=== PATIENT | female | born 1965 | race Caucasian/White ===

== ENCOUNTER 2022-12-22 14:38 | Emergency (ER) | payer OTHER ==
[~2022-12-22] VITALS: Ht 165.1 cm; Wt 149.2 kg
[2022-12-22] MEDS ORDERED: NORVASC5 MG (15:14)
[2022-12-22] MEDS ORDERED: COZAAR50 MG (15:14)
== END 2022-12-22 17:36 | disposition home or self-care (01) ==
LOC: ER 14:38
DX: L02.221 Furuncle of abdominal wall (principal); I10 Essential (primary) hypertension

== ENCOUNTER 2025-07-24 12:06 | Emergency (ER) | payer OTHER ==
[~2025-07-24] VITALS: Ht 165.1 cm; Wt 133.4 kg
[~2025-07-24 12:06] MED LIST: COZAAR50 MG; NORVASC5 MG
[2025-07-24 15:58] LABS: BASO % 0.9 % (0.1-1.2); EOS # 0.14 (0.04-0.54); EOS % 1.1 % (0.7-7.0); LYMPH # 3.82 (1.18-3.74); LYMPH % 29.0 % (19.3-53.1); MEAN PLATELET VOLUME 12.00 fl (9.4-12.4); MONO # 0.66 (0.24-0.82); MONO % 5.0 % (4.7-12.5); NEUT # 8.41 (1.56-6.13); NEUT % 63.7 % (34.0-71.1); RED CELL DISTRIBUTION WIDTH 13.5 % (11.6-14.4)
[2025-07-24 16:18] LABS: ALT/SGPT 39.0 U/L (12-78); AST/SGOT 31.0 U/L (15-37); BILIRUBIN TOTAL 0.45 mg/dL (0.3-1.2); BUN CREA RATIO 14.0 (7.0-25.0); CREATININE SERUM 0.81 mg/dL (0.55-1.02); GFR 72.62; GLOBULINA 3.9 G/DL (2.4-3.5); GLUCOSE FASTING 126.0 mg/dL (65-100); OSMOLALITY SERUM 282.0 MOSM/KG (275-295)
[2025-07-24 16:22] LABS: URINE APPEARANCE Clear; URINE BILIRRUBIN Negative (NEGATIVE); URINE BLOOD Trace; URINE COLOR Yellow; URINE GLUCOSE Negative (NEGATIVE); URINE KETONE 15 (NEGATIVE); URINE LEUKOCYTE Trace; URINE NITRATE Negative; URINE PROTEIN Negative (NEGATIVE); URINE UROBILINOGEN 0.2 E.U./dl
[2025-07-24 16:26] LABS: URINE BACTERIA 430.7 uL (0.0-1933); URINE EPITHELIAL CELLS 21.6 uL (0.0-38.8); URINE RBC 5.7 uL (0.0-20.8); URINE WBC 109.0 uL (0.0-23.2)
[2025-07-24 16:53] LABS: URINE CAST 0.00 uL (0.0-1.40); URINE YEAST FEW /hpf
[2025-07-24] MEDS ORDERED: DUI500 PO (17:27)
== END 2025-07-24 17:40 | disposition home or self-care (01) ==
LOC: ER 12:31
PROVIDERS: General Practice
DX: N39.0 Urinary tract infection, site not specified (principal); R42 Dizziness and giddiness; H53.8 Other visual disturbances; E11.9 Type 2 diabetes mellitus without complications; Z79.84 Long term (current) use of oral hypoglycemic drugs; I10 Essential (primary) hypertension

== ENCOUNTER 2025-08-21 06:00 | Day surgery (SDC) | payer OTHER ==
[2025-08-17 07:20] LABS: BASO % 0.9 % (0.1-1.2); EOS # 0.12 (0.04-0.54); EOS % 1.3 % (0.7-7.0); LYMPH # 3.00 (1.18-3.74); LYMPH % 32.3 % (19.3-53.1); MEAN PLATELET VOLUME 12.20 fl (9.4-12.4); MONO # 0.67 (0.24-0.82); MONO % 7.2 % (4.7-12.5); NEUT # 5.39 (1.56-6.13); NEUT % 58.1 % (34.0-71.1); RED CELL DISTRIBUTION WIDTH 13.8 % (11.6-14.4)
[2025-08-17 07:43] LABS: INR 1.07
[2025-08-17 08:19] LABS: ALT/SGPT 37.0 U/L (12-78); AST/SGOT 21.0 U/L (15-37); BILIRUBIN TOTAL 0.55 mg/dL (0.3-1.2); BUN CREA RATIO 25.0 (7.0-25.0); CREATININE SERUM 0.69 mg/dL (0.55-1.02); GFR 87.38; GLOBULINA 2.9 G/DL (2.4-3.5); GLUCOSE FASTING 100.0 mg/dL (65-100); OSMOLALITY SERUM 290.0 MOSM/KG (275-295)
[2025-08-17 10:17] LABS: URINE APPEARANCE Clear; URINE BILIRRUBIN Negative (NEGATIVE); URINE BLOOD Trace; URINE COLOR Dark Yellow; URINE GLUCOSE Negative (NEGATIVE); URINE KETONE Trace (NEGATIVE); URINE LEUKOCYTE Negative; URINE NITRATE Negative; URINE PROTEIN Trace (NEGATIVE); URINE UROBILINOGEN 0.2 E.U./dl
[2025-08-17 10:22] LABS: URINE BACTERIA 26.3 uL (0.0-1933); URINE EPITHELIAL CELLS 8.4 uL (0.0-38.8); URINE RBC 20.2 uL (0.0-20.8); URINE WBC 5.9 uL (0.0-23.2)
[2025-08-17 10:27] LABS: URINE CAST 0.73 uL (0.0-1.40)
[~2025-08-21 06:00] MED LIST changes: +DUI500 PO
[2025-08-21] MEDS ORDERED: POVIDONE-IODINE 118 ML BOTT TOP ONE (06:42)
[2025-08-21] MEDS ORDERED: ONDANSETRON HCL 2 MG/ML VIAL IV ONE (08:00)
[2025-08-21] MEDS ORDERED: KETOROLAC TROMETHAMINE 60 MG VIAL IM ONE ×2 (08:00→11:44)
== END 2025-08-21 14:20 | disposition home or self-care (01) ==
LOC: CIR.AMB 06:00
PROVIDERS: ATTEND Obstetrics & Gynecology
DX: N84.0 Polyp of corpus uteri (principal); N95.0 Postmenopausal bleeding

== ENCOUNTER 2025-08-26 23:05 | Emergency (ER) | payer OTHER ==
[~2025-08-26] VITALS: Ht 165.1 cm; Wt 127.0 kg
[2025-08-26] MEDS ORDERED: FAMOTIDINE/PF 20 MG in 0.9 % SODIUM CHLORIDE 8 ML IV PUSH ONE (23:30)
[2025-08-26] MEDS ORDERED: 0.9 % SODIUM CHLORIDE 1,000 ML IV SCH (23:30)
[2025-08-26] MEDS ORDERED: FAMOTIDINE/PF 20 MG/2 ML VIAL ONE (23:50)
[2025-08-27 00:45] LABS: BASO % 0.9 % (0.1-1.2); EOS # 0.20 (0.04-0.54); EOS % 1.9 % (0.7-7.0); LYMPH # 2.84 (1.18-3.74); LYMPH % 27.3 % (19.3-53.1); MEAN PLATELET VOLUME 12.00 fl (9.4-12.4); MONO # 0.64 (0.24-0.82); MONO % 6.1 % (4.7-12.5); NEUT # 6.61 (1.56-6.13); NEUT % 63.5 % (34.0-71.1); RED CELL DISTRIBUTION WIDTH 13.9 % (11.6-14.4)
[2025-08-27 02:02] LABS: INR 1.04
[2025-08-27 04:00] LABS: ALT/SGPT 36.0 U/L (12-78); AST/SGOT 22.0 U/L (15-37); BILIRUBIN TOTAL 0.46 mg/dL (0.3-1.2); BUN CREA RATIO 18.0 (7.0-25.0); CREATININE SERUM 0.65 mg/dL (0.55-1.02); GFR 93.62; GLOBULINA 3.4 G/DL (2.4-3.5); GLUCOSE FASTING 109.0 mg/dL (65-100); OSMOLALITY SERUM 285.0 MOSM/KG (275-295)
[2025-08-27 05:36] LABS: URINE APPEARANCE Clear; URINE BILIRRUBIN Negative (NEGATIVE); URINE BLOOD Large; URINE COLOR Yellow; URINE GLUCOSE Negative (NEGATIVE); URINE KETONE Trace (NEGATIVE); URINE LEUKOCYTE Negative; URINE NITRATE Negative; URINE PROTEIN Negative (NEGATIVE); URINE UROBILINOGEN 0.2 E.U./dl
[2025-08-27 05:40] LABS: URINE BACTERIA 4.7 uL (0.0-1933); URINE EPITHELIAL CELLS 24.7 uL (0.0-38.8); URINE RBC 108.5 uL (0.0-20.8); URINE WBC 1.9 uL (0.0-23.2)
[2025-08-27 05:53] LABS: URINE CAST 1.17 uL (0.0-1.40)
[2025-08-27] MEDS ORDERED: MIRALAX17 GM PO (06:08)
[2025-08-27] MEDS ORDERED: PEPCID AC20 MG PO (06:08)
== END 2025-08-27 06:54 | disposition home or self-care (01) ==
LOC: ER 23:05
PROVIDERS: General Practice
DX: N93.8 Other specified abnormal uterine and vaginal bleeding (principal); K64.8 Other hemorrhoids; D25.9 Leiomyoma of uterus, unspecified